=== PATIENT | male | born 1985 | race Hispanic/Latino ===

== ENCOUNTER 2018-03-09 21:37 | Emergency (ER) | payer OTHER ==
[2018-03-09] MEDS ORDERED: Dicyclomine 20 MG TAB ONE (22:00)
[2018-03-09] MEDS ORDERED: Ondansetron ODT 4 MG TAB ONE (22:00)
== END 2018-03-09 23:00 | disposition home or self-care (01) ==
LOC: SCSER 21:37
DX: R11.2 Nausea with vomiting, unspecified (principal); R19.7 Diarrhea, unspecified; F17.210 Nicotine dependence, cigarettes, uncomplicated
CPT/HCPCS: 99283; Q0162

== ENCOUNTER 2018-09-03 15:59 | Emergency (ER) | payer OTHER ==
[2018-09-03] MEDS ORDERED: Ondansetron ODT 4 MG TAB ONE (16:51)
== END 2018-09-03 17:45 | disposition home or self-care (01) ==
LOC: ERS 15:59
DX: K52.9 Noninfective gastroenteritis and colitis, unspecified (principal); F17.210 Nicotine dependence, cigarettes, uncomplicated
CPT/HCPCS: 99283; Q0162

== ENCOUNTER 2019-03-22 16:22 | Emergency (ER) | payer OTHER ==
[~2019-03-22 16:22] MED LIST: Iopamidol-370 76% 500 ML 1 ML ONE
[2019-03-22 16:59] LABS: #Basophils 0.2 thou/uL (0.0-0.2); #Eosinphils 0.2 thou/uL (0.0-0.7); #Lymphocytes 3.4 thou/uL (1.20-3.40); #Monocytes 1.3 thou/uL (0.11-0.59); #Neutrophils 9.8 thou/uL (1.40-6.50); %Basophils 1.1 % (0.0-1.0); %Eosinophils 1.5 % (0.0-10.0); %Lymphocytes 22.7 % (21.0-51.0); %Monocytes 8.7 % (0.0-10.0); %Neutrophils 66.1 % (42.0-75.0); Hemoglobin 16.5 g/dL (14.0-18.0); Mean Corpuscular HGB CONC 35.9 g/dL (32.0-36.0); Mean Corpuscular Hemoglobin 33.2 pg (27.0-31.0); Mean Corpuscular Volume 92.4 fL (78.0-98.0); Mean Platelet Volume 7.2 fL (7.4-10.4); Platelet Count 240 thou/uL (130-400); RBC Distribution Width 11.5 % (11.5-14.5); Red Blood Cell (RBC) Count 4.96 mill/uL (4.70-6.10); White Blood Cell (WBC) Count 14.9 thou/uL (4.8-10.8)
[2019-03-22 17:17] LABS: ALT (SGPT) 51 U/L (8-55); AST (SGOT) 30 U/L (5-34); Albumin 4.5 g/dL (3.5-5.0); Alkaline Phosphatase 127 U/L (40-110); Anion Gap 12 mmol/L (10-20); BUN (Urea Nitrogen) 10 mg/dL (8.9-20.6); Bilirubin, Total 0.7 mg/dL (0.2-1.2); Calc. Creatinine Clearance 0 mL/min (70-130); Calcium 9.4 mg/dL (7.8-10.44); Carbon Dioxide 25 mmol/L (22-29); Chloride 103 mmol/L (98-107); Estimated GFR-MDRD Greater than 90; Glucose 95 mg/dL (70-105); Lipase 44 U/L (8-78); Potassium 4.1 mmol/L (3.5-5.1); Protein, Total 7.5 g/dL (6.0-8.3); Sodium 136 mmol/L (136-145)
--- NOTE | 2019-03-22 18:01 | CT ---
CT ABDOMEN AND PELVIS WITH IV CONTRAST: 03/22/19 HISTORY: Right upper quadrant abdominal pain for three days. COMPARISON: None. FINDINGS: Lung bases are clear. The liver, spleen, pancreas, bilateral adrenal glands, kidneys, abdominal aorta, and partially disten ded urinary bladder demonstrate a normal CT appearance. The gallbladder is decompressed. The appendix is visualized and normal in caliber. Loops of small bowel are also normal in caliber. No free fluid, fluid collection, or lymphadenopathy is seen in the abdomen or pelvis. No suspicious lytic or sclerotic osseous lesions are identified. IMPRESSION: No acute findings are seen in the abdomen or pelvis. POS: [facility]
[2019-03-22] MEDS ORDERED: Lidocaine Viscous Sol 2% 15 ml UD Cup ONE (19:18)
[2019-03-22] MEDS ORDERED: Mag-Al 1200 mg/1200 mg/30 ML UDCUP ONE (19:18)
[2019-03-22 20:05] LABS: Bilirubin Negative (Negative); Blood, Urine Negative (Negative); Clarity Clear (Clear); Glucose, Urine (Dipstick) Normal (Negative); Leukocyte Negative Leu/uL (Negative); Nitrite Negative (Negative); Protein, Urine (Dipstick) Negative (Neg-Trace); Urobilinogen Normal mg/dL (Less than 2)
--- NOTE | 2019-03-22 20:26 | ULT ---
RIGHT UPPER QUADRANT ULTRASOUND: 03/22/19 HISTORY: Right upper quadrant and right lower quadrant abdominal pain. FINDINGS: CT abdomen and pelvis on 03/22/19 obtained prior to this exam. FINDINGS: The pancreas is obscured due to shadowing from bowel gas. As noted on the CT scan examination, the gallbladder is contracted which limits adequate evaluation o f the gallbladder and gives the appearance of gallbladder wall thickening. There is no pericholecysti c fluid identified. The common duct is normal in caliber and measures 2.0 cm in diameter. The liver is normal in size wit hout focal lesion identified. There is mild increased echogenicity of the liver relative to the right kidney, which may be related to an element of mild fatty infiltration. The visualized portions of the IV and right kidney demonstrate a normal sonographic appearance. The r ight kidney measures 10.9 cm in length. IMPRESSION: 1. Contracted gallbladder which limits adequate evaluation. Follow-up examination after appropri ate fasting would be helpful for more adequate evaluation of the gallbladder. 2. Common duct is normal in caliber. 3. Findings suggesting mild fatty infiltration of the liver. POS: [facility]
== END 2019-03-22 20:00 | disposition home or self-care (01) ==
LOC: ERS 16:22
DX: R10.11 Right upper quadrant pain (principal); F17.210 Nicotine dependence, cigarettes, uncomplicated
CPT/HCPCS: 74177; 76705; 80053; 81003; 83690; 85025; 93005; 96360; 96372; J0500; Q9967

== ENCOUNTER 2024-11-15 10:55 | Emergency (ER) | payer SELFPAY ==
[2024-11-15] MEDS ORDERED: Cyclobenzaprine 10 MG TAB ONE (11:14)
[2024-11-15] MEDS ORDERED: Ketorolac Tromethamine 30 MG (1 mL) VIAL ONE (11:14)
== END 2024-11-15 12:05 | disposition home or self-care (01) ==
LOC: ERS 10:55
DX: S20.222A Contusion of left back wall of thorax, initial encounter (principal); F17.210 Nicotine dependence, cigarettes, uncomplicated; W03.XXXA Other fall on same level due to collision with another person, initial encounter
CPT/HCPCS: 96372; 99283; J1885